=== PATIENT | male | born 1980 | race Caucasian/White ===

== ENCOUNTER 2017-09-27 03:32 | Emergency (ER) | payer SELFPAY ==
--- NOTE | 2017-09-27 03:35 | ED Physician Documentation ---
General Adult - HISTORIAN Historian: patient - HPI Stated Complaint: shoulder pain and wrist pain Chief Complaint: General Adult Onset: hours (1) Timing: still present Severity: moderate Further Comments: yes (He was resisting arrest and was taken into arrest and is now complaining of pain in both shoulders (left greater) and both wrists (left greater) He is non compliant with requets at this time not answering questions only yelling and falling around on the bed) Last known Well Code/Unknown Code: Unknown - ROS CONST: no problems - PAST HX Past History: none Other History: none Surgeries/Procedures: none Immunizations: other (unknown ) Allergies/Adverse Reactions: Allergies Allergy/AdvReac Type Severity Reaction Status Date / Time No Known Allergies Allergy Verified 09/27/17 03:43 Home Medications: Ambulatory Orders Medication Instructions Recorded NK [NK] 09/27/17 - SOCIAL HX Smoking History: cigarettes Alcohol Use: none Drug Use: none - FAMILY HX Family History: No - REVIEWED ASSESSMENTS Nursing Assessment Reviewed: Yes Vitals Reviewed: Yes ED Results Lab/Radiology - Radiology Radiology Impressions: Bilateral shoulders, 2 views. History: BILAT SHOULDER PAIN Findings: Right: The osseous structures are intact without acute fracture. The joint space and alignment are normal. There is no soft tissue swelling. Left: The osseous structures are intact without acute fracture. The joint space and alignment are normal. There is no soft tissue swelling. Impression: 1. No acute osseous abnormality. Electronically signed on September 27, 2017 3:57:34 AM CDT by: Kev Mir Bilateral wrist, 3 views. History: BILAT WRIST PAIN Findings: RIGHT: The osseous structures are intact without acute fracture. The joint space and alignment are normal. No erosion or focal soft tissue swelling present. LEFT: The osseous structures are intact without acute fracture. The joint space and alignment are normal. No erosion or focal soft tissue swelling present. Impression: 1. No acute osseous abnormality. Electronically signed on September 27, 2017 3:58:38 AM CDT by: Kev Mir General Adult Physical Exam - PHYSICAL EXAM GENERAL APPEARANCE: moderate distress (screaming and cursing at staff and police escorts) EENT: eye inspection normal RESPIRATORY: no resp distress, chest non-tender, breath sounds normal CVS: reg rate & rhythm, heart sounds normal, equal pulses ABDOMEN: soft BACK: normal inspection SKIN: warm/dry EXTREMITIES: other (SALAMATOF ROM due to non compliance police do not want to remove hand cuffs. Skin is warm pink and dry . He is moving his hands in the hand cuffs. Pulses normal. No obvious deformities of wrists or shoulders. ) NEURO: oriented X3, CN's nml as tested, motor nml, sensation nml Discharge Clincal Impression: Shoulder pain, bilateral Qualifiers: Chronicity: acute Qualified Code(s): M25.511 - Pain in right shoulder Wrist pain, acute Qualifiers: Laterality: unspecified laterality Qualified Code(s): M25.539 - Pain in unspecified wrist Comments: 1. Tylenol or Ibuprofen as needed for pain 2. Return to PCP in 2-4 days if pain remains 3. Return to ER for increasing pain or other concerns Condition: Stable Disposition: 01 HOME, SELF-CARE Decision to Admit: NO Date of Decison to Admit: 09/27/17 Decision Time: 04:02
[2017-09-27 04:16] VITALS: BP 137/89
--- NOTE | 2017-09-27 08:10 | Diagnostic Imaging Report ---
AVI WALLACE [facility] [id number] [facility] [address] [place], [place]. [address] Report Submission Date: September 27, 2017 3:57:34 AM CDT Patient Study Name: QIAN PATTEN Date: September 27, 2017 3:36:06 AM CDT Modality Type: DX Gender: M Description: SHOULDER : 78 Institution: [facility] Physician: AVI WALLACE Bilateral shoulders, 2 views. History: BILAT SHOULDER PAIN Findings: Right: The osseous structures are intact without acute fracture. The joint space and alignment are normal. There is no soft tissue swelling. Left: The osseous structures are intact without acute fracture. The joint space and alignment are normal. There is no soft tissue swelling. Impression: 1. No acute osseous abnormality. Electronically signed on September 27, 2017 3:57:34 AM CDT by: Kev ROPER
--- NOTE | 2017-09-27 08:10 | Diagnostic Imaging Report ---
AVI WALLACE [facility] [id number] [facility] [address] [address] [place], [place]. [address] Report Submission Date: September 27, 2017 3:58:38 AM CDT Patient Study Name: QIAN PATTEN Date: September 27, 2017 3:42:20 AM CDT Modality Type: DX Gender: M Description: UPPER EXTREMITY : 78 Institution: [facility] Physician: AVI WALLACE Bilateral wrist, 3 views. History: BILAT WRIST PAIN Findings: RIGHT: The osseous structures are intact without acute fracture. The joint space and alignment are normal. No erosion or focal soft tissue swelling present. LEFT: The osseous structures are intact without acute fracture. The joint space and alignment are normal. No erosion or focal soft tissue swelling present. Impression: 1. No acute osseous abnormality. Electronically signed on September 27, 2017 3:58:38 AM CDT by: Kev ROPER
== END 2017-09-27 04:07 | disposition home or self-care (01) ==
LOC: ED 03:32
DX: M25.511 Pain in right shoulder (principal); M25.539 Pain in unspecified wrist; M25.512 Pain in left shoulder
CPT/HCPCS: 99284